=== PATIENT | male | born 1950 | race Caucasian/White ===

== ENCOUNTER 2025-07-28 09:55 | Outpatient (AMB) | payer BC, SELFPAY ==
--- NOTE | 2025-07-28 10:09 | MHC.OFFVIS ---
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 He was evaluated by me little over 4 years ago for this and diagnosed with benign essential tremor although he has a history of some tremor in his paternal grandmother and possibly in his mother but he does not recall it very well. Over the years his tremor has gotten slightly worse and it just impacts him carrying a cup of coffee where he has to use both hands. 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 He is still skis and is active. He is coming in for re-evaluation for reassurance that it is nothing more serious. [facility] Medical History (Updated 07/28/25 @ 10:34 by Judie Sadler MD) Tremor Review of Systems ENT Details: Decreased hearing Neuro Reports tremor(s) Physical Exam Neuro Other: Neurological: ? 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 It's a generally a low amplitude fast frequency tremor. There is minimal tremor noted on the right. No head or voice tremor. No rigidity or bradykinesia..? Mental Status:?alert and oriented X 3,?Normal attention, orientation, memory and affect.? Cranial Nerves:?Pupils are equal, round and reactive to light. Fundoscopy shows normal disc bilaterally. External occular muscles are intact. Visual guajardo are full, no ptosis. Face is symmetrical, no facial weakness or droop. Facial sensations are normal. Tongue protrudes in midline. Palate elevates symmetrically. Shoulder shrugging is normal..? Motor Examination:?Normal muscle tone, bulk and strength,?No atrophy or fasciculations,?No drift of the extended upper extremities,?Deep tendon reflexes are 2+?,?Plantars are flexor?.? Motor Strength:? Proximal Muscles (out of 5): ?5 ? Distal Muscles (out of 5): ?5 ? Neck Flexors (out of 5): ?5 ? Neck Extensors (out of 5): ?5 ? Deltoid (out of 5): ?5 ? Biceps (out of 5): ?5 ? Triceps (out of 5): ?5 ? Serratus Anterior (out of 5): ?5 ? Wrist Extensors (out of 5): ?5 ? APB (out of 5): ?5 ? Finger Spread (out of 5): ?5 ? Ileopsoas (out of 5): ?5 ? Quadriceps (out of 5): ?5 ? Hamstrings (out of 5): ?5 ? Tibialis Anterior (out of 5): ?5 ? Peronei (out of 5): ?5 ? EDB (out of 5): ?5 ? Gastrocnemius (out of 5): ?5 ? Straight Leg Raising:?90 degrees.? Sensory Exam:?Normal light touch, temperature, pinprick, vibration and joint-position sensations?,?Rhomberg sign is absent.? Coordination:?no ataxia,?no titubation,?reuyzg-de-vuyx, nerl-ohjy-vsnt test and rapid alternating movements were normal.? Gait Exam:?Within normal limits.? Cerebellar Signs:?Imelsk-tm-keqk and jknm-in-iewp is normal,?no dysdiadochokinesia?.? Extrapyramidal System:?Tremor as described above. No rigidity with normal facial expressions,?No bradykinesia, no bradyphrenia. Normal arm swing and posture. No propulsion or retropulsion.? Speech:?Normal,?no dysphasia or dysarthria..? Mini Mental Status Exam: ? Level of Consciousness:?Alert.? Orientation:?Knows correct year, month, date, day and season,?Knows correct city, county and state. Knows correct location and floor.? Registration:?Able to register 3 objects.? Attention:?Serial 7's performed accurately.? Recall:?Able to recall 3 out of 3 objects.? Language:?Normal spontaneous speech, fluency, repetition,naming, comprehension, reading and writing.? Total Score ?30/30.? General Examination: ? GENERAL APPEARANCE:?normal,?in no acute distress.? HEAD:?normocephalic,?atraumatic.? EYES:?sclera non-icteric,?conjunctiva clear.? EARS:?auditory canal clear,?tympanic membrane intact, clear.? NOSE:?no lesions.? ORAL CAVITY:?gums normal,?mucosa moist,?no lesions.? THROAT:?clear.? NECK/THYROID:?no cervical lymphadenopathy,?thyroid normal,?neck supple, full range of motion,?no carotid bruit.? SKIN:?no rashes,?no significant birthmarks.? HEART:?S1, S2 normal,?no murmurs.? LUNGS:?clear anteriorly and posteriorly.? CHEST:?no gross rib deformity,?clear to auscultation.? BACK:?normal exam of spine.? EXTREMITIES:?no edema.? PERIPHERAL PULSES:?normal.? PSYCH:?alert, oriented,?cognitive function intact,?cooperative with exam.? Assessment & Plan Assessment & Plan (1) Benign familial tremor: Code(s): G25.0 - Essential tremor Category: Medical (2) Hypertension: Code(s): I10 - Essential (primary) hypertension Category: Medical Plan Discussed the diagnosis and prognosis with the patient and his . I have explained the benign nature of the condition and reassured them that this is not Parkinson's disease. I have told him that there are medications available for symptomatic treatment. At this point, both him, his and I agree that he does not need to start medication since it is not causing any functional impairment. Should his tremors gets significantly worse in the future and he desires to be started on medications, he will call the office and make a follow-up appointment. Coding Level of Care Code New Pt Level 5 (73568) Diagnoses Benign familial tremor G25.0 Hypertension I10
== END 2025-07-28 10:32 | disposition home or self-care (01) ==
PROVIDERS: PCP Internal Medicine; Referring Provider Internal Medicine; Visit Provider Psychiatry & Neurology Neurology
DX: G25.0 Essential tremor (principal); I10 Essential (primary) hypertension
CPT/HCPCS: 99203